=== PATIENT | male | born 1960 | race Hispanic/Latino ===

== ENCOUNTER 2016-12-24 11:20 | Emergency (ER) | payer MEDICARE ==
[2016-12-24] MEDS ORDERED: HYDROmorphone 1 mg/ml ISec IM STA (12:36)
[2016-12-24] MEDS ORDERED: TDAP Vaccine 0.5 mL Syr IM ONE (12:39)
--- NOTE | 2016-12-24 13:01 | ED PDOC ---
Arrival/HPI - General Chief Complaint: Trauma Time Seen by Provider: 12/24/16 11:54 Historian: Patient, Family - History of Present Illness Narrative History of Present Illness (Text): 12/24/16 12:25 Pt is a 56 year old male with a PMH of lyme disease, severe non-specific neuropathy, arthritis, asthma, fatigue syndrome, GERD, DVT, anxiety, PTSD, fibromyalgia and depression who presents to the emergency department accompanied by his family complaining of left side body pain secondary to falling about 2 hrs ago today. As he was going down the stairs, he missed the last step and fell towards the left side of his body causing him to feel coccyx pain that radiates down to his mid calf and up to his left shoulder and neck. He reports whip lash of his neck when he fell, but denies any loss of consciousness, chest pain, fevers, headaches, nausea, shortness of breath, vomiting, or any other complaints. Pt did not hit his head or neck when fell. His left arm landed scraped against a concrete floor due to the fall. Last tetanus shot > 5 yrs ago. PMD: None Time/Duration: Prior to Arrival Symptom Onset: Sudden Symptom Course: Unchanged Activities at Onset: Light Modifying Factors (Text): Left shoulder pain, neck pain, coccyx pain Context: Walking Associated Symptoms (Text): None Past Medical History - Provider Review Nursing Documentation Reviewed: Yes - Infectious Disease Hx of Infectious Diseases: None - Cardiac Other/Comment: R bbb, chicken ranch retinopathy, fatigue syndrom, spinal stenosis - Pulmonary Hx Asthma: Yes - Musculoskeletal/Rheumatological Hx Gout: Yes Other/Comment: neropathy, dvt lower calf - Gastrointestinal Hx Gastroesophageal Reflux: Yes - Genitourinary/Gynecological Other/Comment: damaged coccyx - Psychiatric Hx Anxiety: Yes Hx Depression: Yes Hx Post Traumatic Stress Disorder: Yes Hx Substance Use: No - Surgical History Hx Cholecystectomy: Yes Hx Orthopedic Surgery: Yes Other/Comment: gastric sleeve, green filter Family/Social History - Physician Review Nursing Documentation Reviewed: Yes Family/Social History: Diabetes, Hypertension, Other (emphysema ) Smoking Status: Unknown If Ever Smoked Hx Alcohol Use: Yes Frequency of alcohol use: Socially Hx Substance Use: No Allergies/Home Meds Allergies/Adverse Reactions: Allergies cefuroxime [From Ceftin] Allergy (Verified 12/24/16 11:49) ANAPHYLAXIS levofloxacin [From Levaquin] Allergy (Verified 12/24/16 11:49) RASH Home Medications: Home Meds Medication Instructions Recorded Confirmed Allopurinol [Zyloprim] 300 mg PO DAILY 12/24/16 12/24/16 Alprazolam [Xanax] 2 mg PO TID 12/24/16 12/24/16 Amphetamine Salt Combination 20 mg PO DAILY 12/24/16 12/24/16 [Adderall] Cetirizine HCl [Zyrtec Allergy] 10 mg PO DAILY 12/24/16 12/24/16 Escitalopram [Lexapro] 10 mg PO DAILY 12/24/16 12/24/16 Folic Acid 1 mg PO DAILY 12/24/16 12/24/16 Gabapentin [Neurontin] 300 mg PO TID 12/24/16 12/24/16 Omeprazole 20 mg PO DAILY 12/24/16 12/24/16 QUEtiapine [SEROquel] 150 mg PO DAILY 12/24/16 12/24/16 Warfarin [Coumadin] 7 mg PO DAILY 12/24/16 12/24/16 Review of Systems - Physician Review All systems were reviewed & negative as marked: Yes - Review of Systems Constitutional: absent: Fevers Respiratory: absent: SOB Cardiovascular: absent: Chest Pain Gastrointestinal: absent: Abdominal Pain, Nausea, Vomiting Musculoskeletal: Other (Coccyx pain radiating to mid calf and neck) Skin: Other (cuts on the left arm) Neurological: absent: Headache Physical Exam Vital Signs Reviewed: Yes Vital Signs Temp Pulse Resp BP Pulse Ox 12/24/16 14:03 98.2 F 61 18 145/85 100 12/24/16 11:35 98.6 F 72 16 135/74 97 Temperature: Afebrile Blood Pressure: Normal Pulse: Regular Respiratory Rate: Normal Appearance: Positive for: Well-Appearing, Non-Toxic, Comfortable, Other (Pt is obese) Pain Distress: None Mental Status: Positive for: Alert and Oriented X 3 - Systems Exam Head: Present: Atraumatic, Normocephalic Pupils: Present: PERRL Extroacular Muscles: Present: EOMI Conjunctiva: Present: Normal Mouth: Present: Moist Mucous Membranes Pharnyx: Present: Normal Nose (External): Present: Atraumatic Neck: Present: Normal Range of Motion. No: Paraspinal Tenderness Respiratory/Chest: Present: Clear to Auscultation, Good Air Exchange. No: Respiratory Distress, Accessory Muscle Use Cardiovascular: Present: Regular Rate and Rhythm, Normal S1, S2. No: Murmurs Abdomen: Present: Normal Bowel Sounds. No: Tenderness, Distention, Peritoneal Signs Upper Extremity: Present: Normal ROM, Other (multiple abrasions on the left arm and mild left shoulder tenderness). No: Cyanosis, Edema Lower Extremity: Present: Other (mild left hip tenderness). No: Edema Neurological: Present: Speech Normal, Motor Func Grossly Intact, Normal Sensory Function Skin: Present: Warm, Dry, Normal Color. No: Rashes Psychiatric: Present: Alert, Oriented x 3, Normal Insight, Normal Concentration Medical Decision Making ED Course and Treatment: 12/24/16 12:25 Impression: Mechanical fall from a step Differential Diagnosis included but are not limited to: contusion (more likely ) vs. fracture (less likely, secondary to fall) Plan: -- X-ray Cervical spine -- X- ray left hip -- X-ray of sacrum & coccyx -- X- ray of left shoulder -- Boostrix vaccine and Dilaudid -- Reassess and disposition Progress Notes: 12/24/2016 14:23 Shoulder X-ray: Creator : Kenna Chan MD COMPARISON: No prior. FINDINGS: BONES: Bone alignment and mineralization are normal. There is no acute displaced fracture. JOINTS: There is moderate degenerative osteoarthrosis in the acromioclavicular joint with subarticular cystic changes and irregularity. The glenohumeral joint is normal. SOFT TISSUES: Normal. OTHER FINDINGS: None. IMPRESSION: No acute displaced fracture or dislocation. Moderate degenerative osteoarthrosis in the acromioclavicular joint. 12/24/2016 14:25 Sacrum and Coccyx X-ray: Creator : Kenna Chan MD COMPARISON: None available. FINDINGS: BONES: There is no acute displaced fracture or bone destruction. The sacrococcygeal angulation is normal. SACROILIAC JOINTS: Unremarkable. OTHER FINDINGS: None. IMPRESSION: No acute displaced fracture or dislocation. 12/24/2016 14:35 Hip and Pelvis X-ray: Creator : Kenna Chan MD COMPARISON: None. FINDINGS: AP view of the pelvis, AP and frog lateral view of the left hip were obtained. There is no evidence of fracture, dislocation or bone destruction. Bone mineralization is normal. There is mild degenerative osteoarthrosis in the hip joints, worse on the left. The sacroiliac joints are normal. The visualized soft tissues are normal. IMPRESSION: No acute displaced fracture or dislocation. Please note occult fractures cannot be excluded on plain radiographs. If there is a persistent clinical concern, an MRI of the hip may be performed for further evaluation. Mild degenerative osteoarthrosis in the hip joints, worse on the left. 12/24/16 14:23 Pt feels better. xrays show no acute findings. will d/c home. - RAD Interpretation Radiology Orders: 12/24/16 12:36 CERVICAL SPINE AP & LATERAL [RAD] Stat SACRUM &/or COCCYX (MIN 2VW) [RAD] Stat 12/24/16 12:37 Hip Left [HIP MIN 2V W/ PELVIS LT] [RAD] Stat SHOULDER LEFT [RAD] Stat - Medication Orders Current Medication Orders: Discontinued Medications Hydromorphone HCl (Dilaudid) 1 mg IM STAT STA Stop: 12/24/16 12:37 Last Admin: 12/24/16 12:49 Dose: 1 mg Tetanus/Reduced Diphtheria/Acell Pertussis (Boostrix Vaccine Inj) 0.5 ml IM .ONCE ONE Stop: 12/24/16 12:40 Last Admin: 12/24/16 14:02 Dose: 0.5 ml - Scribe Statement The provider has reviewed the documentation as recorded by the Scribe 12/24/2016 Wanda Fernandez training with [employer] Provider Scribe Attestation: All medical record entries made by the Scribe were at my direction and personally dictated by me. I have reviewed the chart and agree that the record accurately reflects my personal performance of the history, physical exam, medical decision making, and the department course for this patient. I have also personally directed, reviewed, and agree with the discharge instructions and disposition. Disposition/Present on Arrival - Present on Arrival Any Indicators Present on Arrival: No History of DVT/PE: Yes History of Uncontrolled Diabetes: No Urinary Catheter: No History of Decub. Ulcer: No History Surgical Site Infection Following: Orthopedic Procedures - Disposition Have Diagnosis and Disposition been Completed?: Yes Diagnosis: Fall (on) (from) other stairs and steps, initial encounter, Arm abrasion, Contusion of sacrum Disposition: HOME/ ROUTINE Disposition Time: 14:24 Patient Plan: Discharge Condition: IMPROVED Discharge Instructions (ExitCare): Contusion in Adults (ED), Abrasion (ED), Fall Prevention (ED) Print Language: AMHARIC Additional Instructions: Mr. Linda, thank you for letting us take care of you today. Return to the ER if your symptoms worsen. Take your routine/chronic pain medication as needed for pain. Follow up with Dr. James Izquierdo this week for a re-evaluation. Referrals: Fred Izquierdo MD [Primary Care Provider] - Follow up with primary
[2016-12-24 14:04] VITALS: BP 145/85; PULSE 61; RESP 18; TEMP 98.2; O2SAT 100
--- NOTE | 2016-12-24 14:20 | RAD ---
PROCEDURE: Radiographs of the Left Shoulder HISTORY: Fall, w/ left lateral rib pain/back coccyx pain COMPARISON: No prior. FINDINGS: BONES: Bone alignment and mineralization are normal. There is no acute displaced fracture. JOINTS: There is moderate degenerative osteoarthrosis in the acromioclavicular joint with subarticular cystic changes and irregularity. The glenohumeral joint is normal. SOFT TISSUES: Normal. OTHER FINDINGS: None. IMPRESSION: No acute displaced fracture or dislocation. Moderate degenerative osteoarthrosis in the acromioclavicular joint.
--- NOTE | 2016-12-24 14:21 | RAD ---
PROCEDURE: Radiographs of the Sacrum and Coccyx HISTORY: Fell w/ left lateral rib pain/back coccyx pain COMPARISON: None available. TECHNIQUE: Frontal and lateral views of the sacrum and coccyx FINDINGS: BONES: There is no acute displaced fracture or bone destruction. The sacrococcygeal angulation is normal. SACROILIAC JOINTS: Unremarkable. OTHER FINDINGS: None. IMPRESSION: No acute displaced fracture or dislocation.
--- NOTE | 2016-12-24 14:34 | RAD ---
PROCEDURE: Radiographs of the pelvis and left hip joint INDICATION: COMPARISON: None. FINDINGS: AP view of the pelvis, AP and frog lateral view of the left hip were obtained. There is no evidence of fracture, dislocation or bone destruction. Bone mineralization is normal. There is mild degenerative osteoarthrosis in the hip joints, worse on the left. The sacroiliac joints are normal. The visualized soft tissues are normal. IMPRESSION: No acute displaced fracture or dislocation. Please note occult fractures cannot be excluded on plain radiographs. If there is a persistent clinical concern, an MRI of the hip may be performed for further evaluation. Mild degenerative osteoarthrosis in the hip joints, worse on the left.
--- NOTE | 2016-12-24 15:23 | RAD ---
PROCEDURE: Cervical Spine Radiographs. HISTORY: Pain. COMPARISON: None. FINDINGS: BONES: Alignment maintained. No fracture. Dens Intact. DISC SPACES: Normal. SOFT TISSUES: Normal. No prevertebral soft tissue swelling. OTHER FINDINGS: None. IMPRESSION: Normal cervical spine radiographs
== END 2016-12-24 14:53 | disposition home or self-care (01) ==
LOC: ED 11:20
DX: S40.812A Abrasion of left upper arm, initial encounter (principal); S30.0XXA Contusion of lower back and pelvis, initial encounter; W10.9XXA Fall (on) (from) unspecified stairs and steps, initial encounter; Y93.01 Activity, walking, marching and hiking; M79.7 Fibromyalgia; Z23 Encounter for immunization
CPT/HCPCS: 72040; 72220; 73030; 73502; 90471; 90715; 96372; 99285; J1170

== ENCOUNTER 2017-01-18 17:54 | Emergency (ER) | payer MEDICARE ==
[2017-01-18 18:13] VITALS: BMI 41.1
[2017-01-18 18:19] VITALS: TEMP 98.2; O2SAT 98
--- NOTE | 2017-01-18 18:51 | ED PDOC ---
Arrival/HPI - General Chief Complaint: Trauma Time Seen by Provider: 01/18/17 18:23 Historian: Patient - History of Present Illness Narrative History of Present Illness (Text): 01/18/17 18:39 A 56 year old male, whose past medical history includes lyme disease, severe non -specific neuropathy, arthritis, asthma, fatigue syndrome, GERD, DVT, anxiety, PTSD, fibromyalgia, and depression, presents to the emergency department accompanied by his family reporting of trauma to the neck and back after falling backwards while climbing up the stairs. The patient notes that he was casually walking up the stairs and all of a sudden he couldn't feel his left leg and he fell backwards. He tucked his head during the fall to avoid hitting his head, but he stretched his neck and fell on his neck. The patient denies any nausea, vomiting, diarrhea, chest pain, abdominal pain, or any other symptoms at this time. Patient says that he has a history of multiple falls just like that where his loses the left leg sensation and then falls. No focal weakness otherwise. PMD: Dr. Kramer Time/Duration: Prior to Arrival Symptom Onset: Sudden Symptom Course: Unchanged Activities at Onset: Light Context: Home Past Medical History - Provider Review Nursing Documentation Reviewed: Yes - Infectious Disease Hx of Infectious Diseases: None - Cardiac Other/Comment: R bbb, eek retinopathy, fatigue syndrom, spinal stenosis - Pulmonary Hx Asthma: Yes - Neurological Other/Comment: neuropathy - Endocrine/Metabolic Hx Endocrine Disorders: No - Hematological/Oncological Hx Blood Disorders: No Other/Comment: lymedisease - Integumentary Hx Dermatological Disorder: No - Musculoskeletal/Rheumatological Hx Gout: Yes Other/Comment: neropathy, dvt lower calf - Gastrointestinal Hx Gastroesophageal Reflux: Yes - Genitourinary/Gynecological Other/Comment: damaged coccyx - Psychiatric Hx Anxiety: Yes Hx Depression: Yes Hx Post Traumatic Stress Disorder: Yes Hx Substance Use: No - Surgical History Hx Cholecystectomy: Yes Hx Orthopedic Surgery: Yes Other/Comment: gastric sleeve, green filter - Anesthesia Hx Anesthesia: Yes Hx Anesthesia Reactions: No Hx Malignant Hyperthermia: No Family/Social History - Physician Review Nursing Documentation Reviewed: Yes Family/Social History: No Known Family HX, Unknown Family HX Smoking Status: Unknown If Ever Smoked Hx Alcohol Use: Yes Hx Substance Use: No Allergies/Home Meds Allergies/Adverse Reactions: Allergies cefuroxime [From Ceftin] Allergy (Verified 01/18/17 18:13) ANAPHYLAXIS levofloxacin [From Levaquin] Allergy (Verified 01/18/17 18:13) RASH Home Medications: Home Meds Medication Instructions Recorded Confirmed Allopurinol [Zyloprim] 300 mg PO DAILY 12/24/16 01/18/17 Alprazolam [Xanax] 2 mg PO TID 12/24/16 01/18/17 Amphetamine Salt Combination 20 mg PO BID 12/24/16 01/18/17 [Adderall] Cetirizine HCl [Zyrtec Allergy] 10 mg PO DAILY 12/24/16 01/18/17 Escitalopram [Lexapro] 10 mg PO DAILY 12/24/16 01/18/17 Folic Acid 1 mg PO DAILY 12/24/16 01/18/17 Gabapentin [Neurontin] 300 mg PO TID 12/24/16 01/18/17 Omeprazole 20 mg PO DAILY 12/24/16 01/18/17 QUEtiapine [SEROquel] 150 mg PO DAILY 12/24/16 01/18/17 Warfarin [Coumadin] 7 mg PO DAILY 12/24/16 01/18/17 Review of Systems - Physician Review All systems were reviewed & negative as marked: Yes - Review of Systems Respiratory: absent: SOB Cardiovascular: absent: Chest Pain Gastrointestinal: absent: Abdominal Pain, Diarrhea, Nausea, Vomiting Musculoskeletal: Back Pain, Neck Pain Physical Exam Vital Signs Reviewed: Yes Vital Signs Temp Pulse Resp BP Pulse Ox 01/18/17 21:05 87 18 130/76 98 01/18/17 18:17 98.2 F 67 16 129/78 98 Temperature: Afebrile Blood Pressure: Normal Pulse: Regular Respiratory Rate: Normal Appearance: Positive for: Well-Appearing, Non-Toxic, Comfortable Pain Distress: None Mental Status: Positive for: Alert and Oriented X 3 - Systems Exam Head: Present: Atraumatic, Normocephalic Pupils: Present: PERRL Conjunctiva: Present: Normal Mouth: Present: Moist Mucous Membranes Pharnyx: Present: Normal. No: ERYTHEMA, EXUDATE Neck: Present: Normal Range of Motion, MIDLINE TENDERNESS (ttp in the mid and upper c-spine in the midline) Respiratory/Chest: Present: Clear to Auscultation, Good Air Exchange. No: Respiratory Distress, Accessory Muscle Use Cardiovascular: Present: Regular Rate and Rhythm, Normal S1, S2. No: Murmurs Abdomen: Present: Normal Bowel Sounds. No: Tenderness, Distention, Peritoneal Signs Back: Present: Midline Tenderness (ttp in the lower L-spine) Upper Extremity: Present: Normal Inspection. No: Cyanosis, Edema Lower Extremity: Present: Normal Inspection. No: Edema Neurological: Present: GCS=15, CN II-XII Intact, Speech Normal Skin: Present: Warm, Dry, Normal Color. No: Rashes Psychiatric: Present: Alert, Oriented x 3, Normal Insight, Normal Concentration Medical Decision Making ED Course and Treatment: 01/18/17 18:57 Impression: A 56 year old male with neck and back pain. Differential Diagnosis included but are not limited to: fx vs strain Plan: -- Cervical Spine CT -- Head CT -- Lumbar Spine CT -- Percocet -- Reassess and disposition Prior Visits: Notes and results from previous visits were reviewed. Patient was last seen in the emergency department on 12/24/16 for left side body pain and was discharged home same day. Progress Notes: 01/18/17 20:[address] results are noted below. No acute fx are seen. Of note, there is a right renal lesion noted on CT, of which the patient was made aware and informed that he needs to follow up and obtain an outpatient MRI or CT of the right kidney. CT Head Without Intravenous Contrast EXAM DATE/TIME: 01/18/2017 7:02 PM COMPARISON: No relevant prior studies available. IMPRESSION: No evidence of acute intracranial injury or fractures. CT Cervical Spine Without Intravenous Contras EXAM DATE/TIME: 01/18/2017 7:03 PM COMPARISON:None is available. IMPRESSION: No acute cervical spine fractures identified CT Lumbar Spine Without Intravenous Contrast EXAM DATE/TIME: 01/18/2017 7:04 PM COMPARISON: No relevant prior studies available. IMPRESSION: - No acute lumbar spine fractures identified. - Incidental complex right renal lesion, for which further workup is recommended. See above. - RAD Interpretation Radiology Orders: 01/18/17 19:02 Brain [HEAD W/O CONTRAST] [CT] Stat 01/18/17 19:03 CERVICAL SPINE W/O CONTRAST [CT] Stat 01/18/17 19:04 LUMBAR SPINE W/O CONTRAST [CT] Stat - Medication Orders Current Medication Orders: Discontinued Medications Oxycodone/Acetaminophen (Percocet 5/325 Mg Tab) 1 tab PO STAT STA Stop: 01/18/17 19:03 Last Admin: 01/18/17 19:25 Dose: 1 tab - PA / MULTI CRAFT MAINTENANCE TECHNICIAN / Resident Statement MD/DO has reviewed & agrees with the documentation as recorded. - Scribe Statement The provider has reviewed the documentation as recorded by the Scribe Jasmyne Mcdonough Provider Scribe Attestation: All medical record entries made by the Scribe were at my direction and personally dictated by me. I have reviewed the chart and agree that the record accurately reflects my personal performance of the history, physical exam, medical decision making, and the department course for this patient. I have also personally directed, reviewed, and agree with the discharge instructions and disposition. Disposition/Present on Arrival - Present on Arrival Any Indicators Present on Arrival: Yes History of DVT/PE: Yes History of Uncontrolled Diabetes: No Urinary Catheter: No History of Decub. Ulcer: No History Surgical Site Infection Following: Orthopedic Procedures - Disposition Have Diagnosis and Disposition been Completed?: Yes Diagnosis: Neck strain, Low back strain, Lesion of right hoopa kidney Disposition: HOME/ ROUTINE Disposition Time: 21:00 Patient Plan: Discharge Patient Problems: Current Active Problems Problem Status Onset Lesion of right hoopa kidney Acute Low back strain Acute Neck strain Acute Condition: GOOD Additional Instructions: Continue your medications as prescribed. Have Dr. Kramer arrange for an outpatient MRI or CT scan of the right kidney to assess the lesion seen on it on the imaging done here in the emergency department. Return to the emergency department if any new concerning symptoms. Prescriptions: Baclofen [Lioresal] 1 tab PO TID PRN #20 tab PRN Reason: Pain, Moderate (4-7) Referrals: Rigoberto Kramer MD [Family Provider] - Follow up with primary Forms: [employer] (Malagasy)
[2017-01-18] MEDS ORDERED: Oxycodone/Acetaminophen 5/325 mg Tab PO STA (19:02)
--- NOTE | 2017-01-18 20:22 | CT ---
EXAM: CT Cervical Spine Without Intravenous Contrast CLINICAL HISTORY: 56 years old, male; Injury or trauma; Fall; Initial encounter; Concussion /head injury; Additional info: Upper neck pain S/P fall TECHNIQUE: Axial computed tomography images of the cervical spine without intravenous contrast. This CT exam was performed using one or more of the following dose reduction techniques: automated exposure control, adjustment of the mA and/or kV according to patient size, and/or use of iterative reconstruction technique. Coronal and sagittal reformatted images were created and reviewed. EXAM DATE/TIME: 01/18/2017 7:03 PM COMPARISON: None is available. FINDINGS: VERTEBRAE: No acute cervical spine fractures visualized. No evidence of significant vertebral subluxation. Normal alignment of the facet joints. DISCS/SPINAL CANAL/NEURAL FORAMINA: Marked degenerative disc disease at C5-6. Marked facet joint degenerative changes C3-4 on the right. OTHER BONES/JOINTS: Healing/nonacute fracture of the left second rib posteriorly.Bony structures appear demineralized. SOFT TISSUES: No acute abnormality of the visualized soft tissues is seen. LUNG APICES: No pneumothorax seen. IMPRESSION: - No acute cervical spine fractures identified. - See above for remaining findings.
--- NOTE | 2017-01-18 20:25 | CT ---
EXAM: CT Head Without Intravenous Contrast CLINICAL HISTORY: 56 years old, male; Injury or trauma; Fall; Initial encounter; Concussion / head injury; Additional info: Fell, upper neck injury, on coumadin TECHNIQUE: Axial computed tomography images of the head/brain without intravenous contrast. This CT exam was performed using one or more of the following dose reduction techniques: automated exposure control, adjustment of the mA and/or kV according to patient size, and/or use of iterative reconstruction technique. EXAM DATE/TIME: 01/18/2017 7:02 PM COMPARISON: No relevant prior studies available. FINDINGS: BRAIN: Areas of low density in the periventricular white matter bilaterally, most likely representing mild chronic small vessel ischemic changes. Diffuse, age-related cortical atrophy and ventriculomegaly. No significant acute abnormality identified. No acute hemorrhage seen within the brain. No acute extra-axial fluid collections visualized. No evidence of significant mass effect within the brain. VENTRICLES: See above. BONES/JOINTS: No acute fractures or other acute bony abnormality noted. SOFT TISSUES: No acute abnormality of the visualized soft tissues is seen. VASCULATURE: Atherosclerotic calcification. SINUSES: Visualized paranasal sinuses appear clear. MASTOID AIR CELLS: Mastoid air cells appear clear. IMPRESSION: - No evidence of acute intracranial injury or fractures. - See above for remaining findings.
--- NOTE | 2017-01-18 20:33 | CT ---
EXAM: CT Lumbar Spine Without Intravenous Contrast CLINICAL HISTORY: 56 years old, male; Injury or trauma; Fall; Initial encounter; Blunt trauma (contusions or hematomas); Additional info: Hit neck and low back on fall - R/O FX TECHNIQUE: Axial computed tomography images of the lumbar spine without intravenous contrast. This CT exam was performed using one or more of the following dose reduction techniques: automated exposure control, adjustment of the mA and/or kV according to patient size, and/or use of iterative reconstruction technique. Coronal and sagittal reformatted images were created and reviewed. EXAM DATE/TIME: 01/18/2017 7:04 PM COMPARISON: No relevant prior studies available. FINDINGS: VERTEBRAE: Vertebrae appear demineralized. No evidence of acute lumbar spine fracture, acute vertebral compression deformity, or significant vertebral subluxation. DISCS/SPINAL CANAL/NEURAL FORAMINA: Mild to moderate multilevel degenerative disc disease, greatest at L5-S1. Facet joint degenerative changes L5-S1 and L3-4. SOFT TISSUES: No acute abnormality of the visualized soft tissues is seen. VASCULATURE: IVC filter in place. KIDNEYS AND URETERS: Incidental complex right renal lesion, measuring 5.4 cm maximally. This is a density higher than expected for a simple cyst and demonstrates diffuse, thick, irregular peripheral calcification. Neoplasm is not excluded. Recommend renal protocol CT or MRI for further evaluation, not necessarily on an emergent basis. IMPRESSION: - No acute lumbar spine fractures identified. - Incidental complex right renal lesion, for which further workup is recommended. See above. - See above for remaining findings.
[2017-01-18 21:06] VITALS: BP 130/76; PULSE 87; RESP 18
== END 2017-01-18 21:20 | disposition home or self-care (01) ==
LOC: ED 17:54
DX: S39.012A Strain of muscle, fascia and tendon of lower back, initial encounter (principal); S16.1XXA Strain of muscle, fascia and tendon at neck level, initial encounter; W10.9XXA Fall (on) (from) unspecified stairs and steps, initial encounter; Y92.009 Unspecified place in unspecified non-institutional (private) residence as the place of occurrence of the external cause; N28.89 Other specified disorders of kidney and ureter

== ENCOUNTER 2017-05-03 20:10 | Emergency (ER) | payer MEDICARE ==
[2017-05-03 20:31] VITALS: BP 164/95; PULSE 77; RESP 19; TEMP 98.3; O2SAT 100; BMI 37.5
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
== END 2017-05-03 22:22 | disposition home or self-care (01) ==
LOC: ED 20:10
DX: S61.211A Laceration without foreign body of left index finger without damage to nail, initial encounter (principal); S61.213A Laceration without foreign body of left middle finger without damage to nail, initial encounter; W45.8XXA Other foreign body or object entering through skin, initial encounter; Y93.89 Activity, other specified; Y92.89 Other specified places as the place of occurrence of the external cause

== ENCOUNTER 2017-08-18 13:20 | Emergency (ER) | payer MEDICARE, OTHER ==
[2017-08-18 13:20] VITALS: BMI 39.3
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
[2017-08-18 14:42] LABS: BASO # 0.02 K/mm3 (0.0-2.0); BASO % 0.3 % (0.0-3.0); EOS # 0.1 (0.0-0.7); EOS % 1.5 % (1.5-5.0); GRAN # 3.65 (1.4-6.5); GRAN % 55.4 % (50.0-68.0); HEMOGLOBIN 13.8 g/dL (14.0-18.0); LYMPH # 2.1 (1.2-3.4); LYMPH % 32.2 % (22.0-35.0); MEAN CELL VOLUME 96.9 fl (80.0-105.0); MEAN CORPUSCULAR HEMOGLOBIN 32.8 pg (25.0-35.0); MEAN CORPUSCULAR HGB CONC 33.8 g/dl (31.0-37.0); MONO # 0.7 (0.1-0.6); MONO % 10.6 % (1.0-6.0); RBC 4.21 10^6/uL (3.5-6.1); RED CELL DISTRIBUTION WIDTH 14.2 % (11.5-14.5); WHITE BLOOD COUNT 6.6 10^3/ul (4.5-11.0)
[2017-08-18 14:52] LABS: ALB/GLOB RATIO 1.3 (1.1-1.8); ALT/SGPT 29 U/L (7-56); AST/SGOT 35 U/L (17-59); BLOOD UREA NITROGEN 17 mg/dL (7-21); CALCIUM 9.7 mg/dL (8.4-10.5); GFR AFRICAN-AMERICAN > 60; GFR NON-AFRICAN AMERICAN > 60
[2017-08-18 15:00] LABS: D DIMER < 200 ng/mL (0-243)
[2017-08-18 15:02] LABS: TROPONIN I < 0.01 ng/mL
[2017-08-18 15:03] LABS: PROTHROMBIN TIME 22.2 SECONDS (9.4-12.5)
[2017-08-18 15:04] LABS: INR 1.92 (0.93-1.08)
[2017-08-18 15:23] LABS: CK-MB 3.3 ng/mL (0.0-3.6)
--- NOTE | 2017-08-18 16:12 | RAD ---
HISTORY: Syncope COMPARISON: 12/29/2016. FINDINGS: LUNGS: The lungs are well inflated and clear. PLEURA: No significant pleural effusion identified, no pneumothorax apparent. CARDIOVASCULAR: Normal. OSSEOUS STRUCTURES: No significant abnormalities. VISUALIZED UPPER ABDOMEN: Normal. OTHER FINDINGS: None. IMPRESSION: No active pulmonary disease.
--- NOTE | 2017-08-18 17:24 | CT ---
PROCEDURE: CT HEAD WITHOUT CONTRAST. HISTORY: Syncope COMPARISON: Noncontrast head CT performed 01/18/17 TECHNIQUE: Axial computed tomography images were obtained through the head/brain without intravenous contrast. Radiation dose: Total exam DLP = 1143.68 mGy-cm. This CT exam was performed using one or more of the following dose reduction techniques: Automated exposure control, adjustment of the mA and/or kV according to patient size, and/or use of iterative reconstruction technique. FINDINGS: Streak artifact obscures evaluation of the skullbase. HEMORRHAGE: No intracranial hemorrhage. BRAIN: Diffuse atrophy with prominence of the ventricles and sulci noted. No mass effect or edema. Dense intracranial atherosclerosis. Mild scattered white matter hypodensities, which are nonspecific, but often seen with chronic microvascular ischemic disease. Scattered periventricular and subcortical white matter hypodensities, which are nonspecific, but often seen with chronic microvascular ischemic disease. VENTRICLES: No hydrocephalus. CALVARIUM: Unremarkable. PARANASAL SINUSES: Unremarkable as visualized. No significant inflammatory changes. MASTOID AIR CELLS: Unremarkable as visualized. No inflammatory changes. OTHER FINDINGS: None. IMPRESSION: Generalized atrophy. Nonspecific white matter changes. Dense intracranial atherosclerosis.
[2017-08-18 19:13] LABS: URINE BILIRUBIN NEGATIVE (NEGATIVE); URINE BLOOD TRACE-INTACT (NEGATIVE); URINE GLUCOSE (UA) NEGATIVE (NEGATIVE); URINE LEUKOCYTE ESTERASE NEGATIVE Leu/uL (NEGATIVE); URINE NITRATE NEGATIVE (NEGATIVE); URINE PROTEIN NEGATIVE mg/dL (<30 mg/dL); URINE UROBILINOGEN 0.2 E.U./dL (<1 E.U./dL)
[2017-08-18 19:15] LABS: URINE APPEARANCE CLEAR (CLEAR); URINE COLOR YELLOW (YELLOW)
[2017-08-18 19:29] LABS: URINE BACTERIA MOD (NEG); URINE RBC 0 - 2 /hpf (0-2); URINE WBC 0 - 2 /hpf (0-6)
[2017-08-18 19:30] VITALS: TEMP 97.8; O2SAT 100
[2017-08-18 19:31] VITALS: BP 162/78; PULSE 75; RESP 14
[2017-08-18 19:34] LABS: BARBITURATES, UR NEGATIVE (NEGATIVE); BENZODIAZEPINES, UR POSITIVE (NEGATIVE); OPIATES, UR NEGATIVE (NEGATIVE); PHENCYCLIDINE, UR NEGATIVE (NEGATIVE)
--- NOTE | 2017-08-19 21:25 | CARD ---
APPROVED REPORT EKG Measurement Heart [id number] <Conclusion> Sinus bradycardia Right bundle branch block Abnormal ECG
== END 2017-08-18 19:30 | disposition left against medical advice (07) ==
LOC: ED 13:20
DX: F43.10 Post-traumatic stress disorder, unspecified (principal); A69.20 Lyme disease, unspecified; G47.10 Hypersomnia, unspecified; R55 Syncope and collapse
CPT/HCPCS: 70450; 71045; 80053; 81001; 82550; 82553; 83615; 84484; 85025; 85378; 85610; 90791; 93005; 99284; G0480

== ENCOUNTER 2017-11-28 21:27 | Emergency (ER) | payer MEDICARE ==
[2017-11-28 21:27] VITALS: BMI 39.3
[2017-11-28 22:00] VITALS: TEMP 98.5
[2017-11-28 22:48] LABS: VENOUS BLOOD GAS BASE EXCESS 6.5 mmol/L (0.0-2.0); VENOUS BLOOD GAS PO2 38 mm/Hg (30-55); VENOUS BLOOD PH 7.36 (7.32-7.43)
[2017-11-28 22:59] LABS: BASO # 0.02 K/mm3 (0.0-2.0); BASO % 0.3 % (0.0-3.0); EOS # 0.2 (0.0-0.7); EOS % 2.3 % (1.5-5.0); GRAN # 4.81 (1.4-6.5); GRAN % 68.5 % (50.0-68.0); HEMOGLOBIN 12.7 g/dL (14.0-18.0); LYMPH # 1.3 (1.2-3.4); LYMPH % 18.3 % (22.0-35.0); MEAN CORPUSCULAR HEMOGLOBIN 31.8 pg (25.0-35.0); MEAN CORPUSCULAR HGB CONC 33.4 g/dl (31.0-37.0); MEAN PLATELET VOLUME 9.7 fl (7.0-11.0); MONO # 0.7 (0.1-0.6); MONO % 10.6 % (1.0-6.0); RED CELL DISTRIBUTION WIDTH 14.4 % (11.5-14.5)
[2017-11-28 23:08] LABS: INR 1.12 (0.93-1.08); PROTHROMBIN TIME 12.8 SECONDS (9.4-12.5)
[2017-11-28 23:12] LABS: ALB/GLOB RATIO 1.3 (1.1-1.8); ALBUMIN 3.7 g/dL (3.0-4.8); ALT/SGPT 31 U/L (7-56); AST/SGOT 39 U/L (17-59); BLOOD UREA NITROGEN 16 mg/dL (7-21); CALCIUM 8.8 mg/dL (8.4-10.5); GFR AFRICAN-AMERICAN > 60; GFR NON-AFRICAN AMERICAN > 60
[2017-11-28] MEDS ORDERED: Oxycodone/Acetaminophen 5/325 mg Tab PO STA (23:18)
[2017-11-28 23:23] LABS: TROPONIN I 0.02 ng/mL
--- NOTE | 2017-11-28 23:51 | ED PDOC ---
Arrival/HPI - General Chief Complaint: Shortness Of Breath Time Seen by Provider: 11/28/17 22:06 Historian: Patient - History of Present Illness Narrative History of Present Illness (Text): 11/28/17 23:51 57yo male with pmhx of DVT on Coumadin who present with complaint of right sided rib pain. Notes that pain is with deep inspiration, causing him to take shallow breaths. He did not take any analgesic. He denies chest pain, trauma, cough, diaphoresis, LE edema, calf pain, nausea, vomiting, dizziness, any other complaint. Past Medical History - Provider Review Nursing Documentation Reviewed: Yes - Infectious Disease Hx of Infectious Diseases: None - Tetanus Immunization Tetanus Immunization: Up to Date - Cardiac Hx Hypertension: No Hx Pacemaker: No Hx Peripheral Edema: Yes (right lower extremity) - Pulmonary Hx Asthma: Yes Hx Chronic Obstructive Pulmonary Disease (COPD): Yes - Neurological Hx Headaches: Yes Hx Seizures: No - HEENT Hx HEENT Disorder: Yes (eyeglasses) - Renal Hx Renal Disorder: No - Endocrine/Metabolic Hx Endocrine Disorders: Yes - Hematological/Oncological Hx Anemia: Yes - Integumentary Hx Dermatological Disorder: No - Musculoskeletal/Rheumatological Hx Arthritis: Yes - Gastrointestinal Hx Gastroesophageal Reflux: Yes - Genitourinary/Gynecological Hx Sexually Transmitted Diseases: No - Psychiatric Hx Anxiety: Yes Hx Depression: Yes Hx Post Traumatic Stress Disorder: Yes Hx Substance Use: No - Surgical History Hx Cardiac Catheterization: Yes ("clean report") Hx Cholecystectomy: Yes (1982) Other/Comment: gastric sleeve. arthroscopic L knee - Anesthesia Hx Anesthesia Reactions: No - Suicidal Assessment Feels Threatened In Home Enviroment: No Family/Social History - Physician Review Nursing Documentation Reviewed: Yes Family/Social History: Unknown Family HX Smoking Status: Never Smoked Hx Alcohol Use: Yes Hx Substance Use: No Allergies/Home Meds Allergies/Adverse Reactions: Allergies cefuroxime [From Ceftin] Allergy (Severe, Verified 08/18/17 13:56) ANAPHYLAXIS cefuroxime axetil [From Ceftin] Allergy (Severe, Verified 08/18/17 13:56) ANAPHYLAXIS levofloxacin [From Levaquin] Allergy (Severe, Verified 08/18/17 13:56) RASH Home Medications: Home Meds Medication Instructions Recorded Confirmed Omeprazole [Prilosec] 20 mg PO DAILY 07/02/15 11/11/17 Cetirizine HCl [Zyrtec] 10 mg PO DAILY 09/26/15 11/11/17 Folic Acid 1 mg PO DAILY 09/26/15 11/11/17 Escitalopram [Lexapro] 20 mg PO HS 11/01/16 11/11/17 Quetiapine Fumarate [Seroquel] 150 mg PO HS 11/01/16 11/11/17 Warfarin [Coumadin] 8 mg PO HS 11/01/16 11/11/17 Allopurinol [Zyloprim] 300 mg PO DAILY 12/24/16 11/11/17 Alprazolam [Xanax] 2 mg PO TID 12/24/16 11/11/17 Amphetamine Salt Combination 20 mg PO BID 12/24/16 11/11/17 [Adderall] Review of Systems - Physician Review All systems were reviewed & negative as marked: Yes - Review of Systems Constitutional: Normal Eyes: Normal ENT: Normal Respiratory: Normal Cardiovascular: Normal Gastrointestinal: Normal Genitourinary Male: Normal Musculoskeletal: Arthralgias (right rib) Skin: Normal Neurological: Normal Endocrine: Normal Hemo/Lymphatic: Normal Psychiatric: Normal Physical Exam Vital Signs Reviewed: Yes Vital Signs Temp Pulse Resp BP Pulse Ox 11/29/17 00:35 78 18 138/78 96 11/28/17 21:59 16 11/28/17 21:56 98.5 F 70 20 151/80 H 98 Temperature: Afebrile Blood Pressure: Normal Pulse: Regular Respiratory Rate: Normal Appearance: Positive for: Well-Appearing, Non-Toxic, Comfortable Pain Distress: None Mental Status: Positive for: Alert and Oriented X 3 - Systems Exam Head: Present: Atraumatic, Normocephalic Pupils: Present: PERRL Extroacular Muscles: Present: EOMI Conjunctiva: Present: Normal Mouth: Present: Moist Mucous Membranes Neck: Present: Normal Range of Motion Respiratory/Chest: Present: Clear to Auscultation, Good Air Exchange, Tender to Palpation (Right lateral and posterior ribs). No: Respiratory Distress, Accessory Muscle Use, Wheezes, Decreased Breath Sounds, Rales, Retracting, Rhonchi Cardiovascular: Present: Regular Rate and Rhythm, Normal S1, S2. No: Murmurs Abdomen: No: Tenderness, Distention, Peritoneal Signs Back: Present: Normal Inspection Upper Extremity: Present: Normal Inspection. No: Cyanosis, Edema Lower Extremity: Present: Normal Inspection. No: Edema Neurological: Present: GCS=15, CN II-XII Intact, Speech Normal Skin: Present: Warm, Dry, Normal Color. No: Rashes Psychiatric: Present: Alert, Oriented x 3, Normal Insight, Normal Concentration Medical Decision Making ED Course and Treatment: 11/29/17 01:48 PT presented for stated history. His lab was unremarkable. His INR was sub therapeutic and he was advised to take his medication as was directed. He admitted that he did not take it for 3days. His pain was reproducible and likely MS. right ribs/CR - No fx. No PTX EKG LAD; RBBB @63bpm This is comparable to pt's previous EKG Result was DW the pt. His pain was controlled in ED and he was DC home with Tramadol. Referred to his PMD. - Lab Interpretations Lab Results: 11/28/17 22:48 11/28/17 22:48 Lab Results 11/28/17 22:48: Sodium 142, Chloride 102, Potassium 3.7, Carbon Dioxide 31, Anion Gap 13, BUN 16, Creatinine 0.8, Est GFR ( Amer) > 60, Est GFR (Non- Af Amer) > 60, Random Glucose 92, Calcium 8.8, Magnesium 1.9, Total Bilirubin 0.9, AST 39, ALT 31, Alkaline Phosphatase 56, Lactate Dehydrogenase 539, Total Creatine Kinase 338 H, CK-MB (CK-2) 3.0, CK-MB (CK-2) % Cancelled, Troponin I 0.02 D, Total Protein 6.5, Albumin 3.7, Globulin 2.8, Albumin/Globulin Ratio 1.3 11/28/17 22:48: PT 12.8 H, INR 1.12 H, APTT 31.0, D-Dimer, Quantitative 81 11/28/17 22:48: WBC 7.0 D, RBC 4.00, Hgb 12.7 L, Hct 38.0 L, MCV 95.0, MCH 31.8 , MCHC 33.4, RDW 14.4, Plt Count 134, MPV 9.7, Gran % 68.5 H, Lymph % (Auto) 18.3 L, [place] % (Auto) 10.6 H, Eos % (Auto) 2.3, Baso % (Auto) 0.3, Gran # 4.81, Lymph # (Auto) 1.3, [place] # (Auto) 0.7 H, Eos # (Auto) 0.2, Baso # (Auto) 0.02 11/28/17 22:44: pO2 38, VBG pH 7.36, VBG pCO2 60.0, VBG HCO3 33.9 H, VBG Total CO2 35.7 H, VBG O2 Sat (Calc) 74.5 H, VBG Base Excess 6.5 H, VBG Potassium 3.8, Sodium 139.0, Chloride 105.0, Glucose 94, Lactate 0.7, FiO2 21.0, Venous Blood Potassium 3.8 - RAD Interpretation Radiology Orders: 11/28/17 22:08 RIBS RIGHT & PA CHEST [RAD] Stat - Medication Orders Current Medication Orders: Discontinued Medications Oxycodone/Acetaminophen (Percocet 5/325 Mg Tab) 1 tab PO STAT STA Stop: 11/28/17 23:19 Last Admin: 11/28/17 23:29 Dose: 1 tab MAR Pain Assessment Document 11/28/17 23:29 MS (Rec: 11/28/17 23:29 [place] [id number] Pain Reassessment Is this a pain reassessment? No Sleep Is patient sleeping during reassessment? No Presence of Pain Presence of Pain Yes Pain Scale Used Pain Scale Used Numeric Location Pain Location Body Site Chest Description Description Constant Intensity of Pain at present 6 Pain Behavior Moaning Disposition/Present on Arrival - Present on Arrival Any Indicators Present on Arrival: No History of DVT/PE: No History of Uncontrolled Diabetes: No Urinary Catheter: No History of Decub. Ulcer: No History Surgical Site Infection Following: Orthopedic Procedures, None - Disposition Have Diagnosis and Disposition been Completed?: Yes Diagnosis: Rib pain Disposition: HOME/ ROUTINE Disposition Time: 00:05 Patient Plan: Discharge Condition: STABLE Discharge Instructions (ExitCare): Chest Pain (ED) Additional Instructions: Follow up with your doctor Return to ED for any new symptoms Prescriptions: traMADol [Ultram] 50 mg PO TID #12 tab Referrals: [facility] - Follow up with primary Forms: [employer] (Maltese)
[2017-11-29 00:35] VITALS: BP 138/78; PULSE 78; RESP 18; O2SAT 96
--- NOTE | 2017-11-29 11:37 | RAD ---
PROCEDURE: Radiographs of the Chest and Right Ribs. HISTORY: rib pain COMPARISON: Comparison chest 11/07/2017 TECHNIQUE: Frontal radiograph of the chest and multiple oblique radiographs of the right ribs were obtained. FINDINGS: RIGHT RIBS: No definitive radiographic evidence of displaced right-sided rib fracture. Questionable old left lateral 5th rib deformity versus overlapping- confluence of shadow artifact LUNGS: Lung huber clear. PLEURA: No pneumothorax or pleural fluid. CARDIOVASCULAR: Normal sized heart. No pulmonary vascular congestion. OTHER FINDINGS: Mild multilevel degenerative spondylosis of the thoracic spine. In situ IVC filter IMPRESSION: Unremarkable radiographs of the chest and right ribs. No right rib fracture. . Questionable polyp old left lateral 5th rib deformity. If symptoms persist or occult fracture suspected clinically recommend followup CT scan of the chest
--- NOTE | 2017-11-29 14:11 | CARD ---
APPROVED REPORT EKG Measurement Heart [id number] <Conclusion> Unusual P axis, possible ectopic atrial rhythm Left axis deviation Right bundle branch block Inferior infarct, age undetermined Anterior infarct, age undetermined Abnormal ECG
== END 2017-11-29 00:35 | disposition home or self-care (01) ==
LOC: ED 21:27
DX: R07.81 Pleurodynia (principal); Z86.718 Personal history of other venous thrombosis and embolism; Z79.01 Long term (current) use of anticoagulants

== ENCOUNTER 2017-12-31 10:28 | Day surgery (SDC) | payer MEDICARE ==
[2017-12-29 11:49] VITALS: BMI 32.1
[2017-12-31 11:05] LABS: BASO # 0.02 K/mm3 (0.0-2.0); BASO % 0.5 % (0.0-3.0); EOS # 0.2 (0.0-0.7); EOS % 5.1 % (1.5-5.0); GRAN # 2.03 (1.4-6.5); GRAN % 49.7 % (50.0-68.0); HEMOGLOBIN 13.4 g/dL (14.0-18.0); LYMPH # 1.4 (1.2-3.4); LYMPH % 33.5 % (22.0-35.0); MEAN CELL VOLUME 94.7 fl (80.0-105.0); MEAN CORPUSCULAR HEMOGLOBIN 32.3 pg (25.0-35.0); MEAN CORPUSCULAR HGB CONC 34.1 g/dl (31.0-37.0); MEAN PLATELET VOLUME 9.7 fl (7.0-11.0); MONO # 0.5 (0.1-0.6); MONO % 11.2 % (1.0-6.0); RBC 4.15 10^6/uL (3.5-6.1); RED CELL DISTRIBUTION WIDTH 14.2 % (11.5-14.5); WHITE BLOOD COUNT 4.1 10^3/ul (4.5-11.0)
[2017-12-31 11:17] LABS: INR 1.03 (0.93-1.08); PARTIAL THROMBOPLASTIN TIME 32.4 Seconds (25.1-36.5); PROTHROMBIN TIME 11.9 SECONDS (9.4-12.5)
[2017-12-31 11:36] LABS: BLOOD UREA NITROGEN 12 mg/dL (7-21); GFR AFRICAN-AMERICAN > 60; GFR NON-AFRICAN AMERICAN > 60
[2017-12-31 11:37] LABS: CALCIUM 8.9 mg/dL (8.4-10.5)
[2017-12-31] MEDS ORDERED: Lidocaine 1% Inj (20ml) ONE (12:03)
[2017-12-31] MEDS ORDERED: Midazolam 2 MG/2 ML VIAL ONE ×2 (13:38→14:00)
[2017-12-31] MEDS ORDERED: Oxycodone/Acetaminophen 5/325 mg Tab PO PRN (14:10)
[2017-12-31] MEDS ORDERED: Sodium Chloride 0.45% 1,000 ML IV SCH (14:15)
[2017-12-31] MEDS ORDERED: Midazolam 2 MG/2 ML VIAL IVP ONE (14:41)
[2017-12-31] MEDS ORDERED: Oxycodone/Acetaminophen 5/325 mg Tab ONE (15:30)
[2017-12-31] MEDS ORDERED: Oxycodone/Acetaminophen 5/325 mg Tab PO ONE (15:34)
--- NOTE | 2017-12-31 15:36 | RAD ---
Date of service: 12/31/2017 HISTORY: rt lung bx COMPARISON: 11/28/2017. FINDINGS: LUNGS: The lungs are well inflated and clear. PLEURA: No significant pleural effusion identified, no pneumothorax apparent. CARDIOVASCULAR: Normal. OSSEOUS STRUCTURES: Within normal limits for the patient's age. VISUALIZED UPPER ABDOMEN: Normal. OTHER FINDINGS: None. IMPRESSION: No acute findings. No pneumothorax.
[2017-12-31 15:39] VITALS: PULSE 55
[2017-12-31 15:59] VITALS: BP 167/82; RESP 20; TEMP 97.8; O2SAT 98
--- NOTE | 2017-12-31 20:35 | CT ---
PROCEDURE: CT guided right upper lobe lung biopsy. HISTORY: 1.5 cm peripheral right upper lobe nodule. Evaluate for malignancy PHYSICIAN(S): Joe Izquierdo MD. TECHNIQUE: The relative risks and indications of the procedure were explained to the patient and consent obtained. The patient was placed in a slight left decubitus position on the CT scanner and preliminary images through the upper lungs obtained. Conscious sedation and monitoring were provided throughout the procedure by a nurse. There is a peripheral 15 mm noncalcified nodule abutting the pleura with somewhat irregular margins.. A right anterior oblique approach was selected and the area prepped and draped in the usual sterile fashion. 1% Xylocaine was used to anesthetize the skin and soft tissues. A 18 gauge guiding needle was advanced into the 15 mm right upper lobe peripheral nodule. Its position was confirmed with CT. Using coaxial technique, multiple core biopsies were obtained. The postprocedure images show no evidence of large pneumothorax or significant hemorrhage.. IMPRESSION: 1. CT-guided right upper lobe lung biopsy as described above.
== END 2017-12-31 17:47 | disposition home or self-care (01) ==
LOC: SDS 10:28
PROVIDERS: ATTEND Radiology Vascular & Interventional Radiology
DX: J84.10 Pulmonary fibrosis, unspecified (principal); R91.1 Solitary pulmonary nodule; J43.9 Emphysema, unspecified
CPT/HCPCS: 32405; 36415; 71045; 77012; 80048; 85025; 85610; 85730; 88305; J2250; J2405; J3010; J7030

== ENCOUNTER 2018-08-31 10:56 | Outpatient (CLI) | payer MEDICARE | END 2018-08-31 10:57 | disposition home or self-care (01) | LOC: LAB 10:56 ==

== ENCOUNTER 2018-10-29 18:32 | Observation (INO) | payer MEDICARE, OTHER ==
[2018-10-29 18:39] VITALS: BMI 33.5
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
[2018-10-29 19:33] LABS: BASO # 0.03 K/mm3 (0.0-2.0); BASO % 0.6 % (0.0-3.0); EOS # 0.1 (0.0-0.7); HEMOGLOBIN 12.7 g/dL (14.0-18.0); LYMPH # 1.6 (1.2-3.4); LYMPH % 34.2 % (22.0-35.0); MEAN CELL VOLUME 94.1 fl (80.0-105.0); MEAN CORPUSCULAR HEMOGLOBIN 31.4 pg (25.0-35.0); MEAN CORPUSCULAR HGB CONC 33.3 g/dl (31.0-37.0); MEAN PLATELET VOLUME 9.7 fl (7.0-11.0); MONO # 0.6 (0.1-0.6); MONO % 11.9 % (1.0-6.0); RBC 4.05 10^6/uL (3.5-6.1); RED CELL DISTRIBUTION WIDTH 14.4 % (11.5-14.5); WHITE BLOOD COUNT 4.7 10^3/uL (4.5-11.0)
[2018-10-29 19:46] LABS: INR 2.96; PARTIAL THROMBOPLASTIN TIME 47.3 Seconds (26.9-38.3); PROTHROMBIN TIME 32.9 SECONDS (9.4-12.5)
[2018-10-29 19:47] LABS: ALB/GLOB RATIO 1.3 (1.1-1.8); ALT/SGPT 22 U/L (7-56); AST/SGOT 37 U/L (17-59); BLOOD UREA NITROGEN 15 mg/dL (7-21); CALCIUM 8.9 mg/dL (8.4-10.5); GFR NON-AFRICAN AMERICAN > 60
--- NOTE | 2018-10-29 20:27 | US ---
HISTORY: Leg pain and swelling. Evaluate for DVT PHYSICIAN(S): Joe Izquierdo MD. TECHNIQUE: Duplex sonography and color-flow Doppler with graded compression were used to evaluate the deep venous systems of both lower extremities. FINDINGS: There appears to be chronic DVT with incomplete recanalization noted throughout the left femoral vein. The left common femoral vein is normal and compressible. Post phlebitic changes are also noted in the left popliteal vein. There is no sonographic evidence for deep venous thrombosis in the right lower extremity. IMPRESSION: Chronic post phlebitic changes with incomplete recanalization in the left femoral and popliteal veins
[2018-10-29] MEDS ORDERED: Morphine 2 mg/ml ISec IVP STA (23:09)
[2018-10-30 02:12] VITALS: RESP 20
[2018-10-30] MEDS ORDERED: Pantoprazole 40 mg EC Tab PO SCH (06:00)
--- NOTE | 2018-10-30 10:17 | CT ---
Date of service: 10/29/2018 PROCEDURE: CT HEAD WITHOUT CONTRAST. HISTORY: headache COMPARISON: 08/18/2017 TECHNIQUE: Axial computed tomography images were obtained through the head/brain without intravenous contrast. Radiation dose: Total exam DLP = 992.42 mGy-cm. This CT exam was performed using one or more of the following dose reduction techniques: Automated exposure control, adjustment of the mA and/or kV according to patient size, and/or use of iterative reconstruction technique. FINDINGS: HEMORRHAGE: No intracranial hemorrhage. BRAIN: No mass effect or edema. No atrophy or chronic microvascular ischemic changes. VENTRICLES: Unremarkable. No hydrocephalus. CALVARIUM: Unremarkable. PARANASAL SINUSES: Unremarkable as visualized. No significant inflammatory changes. MASTOID AIR CELLS: Unremarkable as visualized. No inflammatory changes. OTHER FINDINGS: The report concurs with the preliminary [facility] report IMPRESSION: No acute intracranial finding
--- NOTE | 2018-10-30 10:21 | CT ---
Date of service: 10/29/2018 PROCEDURE: CT Cervical Spine without contrast HISTORY: neck pain COMPARISON: None available. TECHNIQUE: Axial computed tomography images were obtained of the cervical spine without the use of intravenous contrast. Coronal and sagittal reformatted images were created and reviewed. Radiation dose: Total exam DLP = 418.9 mGy-cm. This CT exam was performed using one or more of the following dose reduction techniques: Automated exposure control, adjustment of the mA and/or kV according to patient size, and/or use of iterative reconstruction technique. FINDINGS: VERTEBRAE: No fracture. Normal alignment. No destructive bony lesion. DISCS/SPINAL CANAL/NEURAL FORAMINA: No significant central canal or neural foraminal stenosis. Severe disc degeneration at C5-6. Facet arthropathy on the right at C3-4 PARASPINAL SOFT TISSUES: Unremarkable. OTHER FINDINGS: The report concurs with the preliminary [facility] report IMPRESSION: No evidence of acute fracture
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
--- NOTE | 2018-10-30 13:52 | CT ---
Date of service: 10/29/2018 PROCEDURE: CT Lumbar Spine without contrast HISTORY: low back pain, leg paresthesias COMPARISON: None available. TECHNIQUE: Axial computed tomography images were obtained of the lumbar spine without the use of intravenous contrast. Coronal and sagittal reformatted images were created and reviewed. Radiation dose: Total exam DLP = 1647.19 mGy-cm. This CT exam was performed using one or more of the following dose reduction techniques: Automated exposure control, adjustment of the mA and/or kV according to patient size, and/or use of iterative reconstruction technique. FINDINGS: VERTEBRAE: The vertebral bodies are maintained in height. Normal alignment is maintained. The transverse processes appear intact. The posterior elements are intact. There is no scoliotic curvature. DISCS/SPINAL CANAL/NEURAL FORAMINA: L1-2: Unremarkable. L2-3: Unremarkable. L3-4: Diffuse disc bulge. No focal herniation. Bilateral degenerative facet arthropathy. Ligamentum flavum hypertrophy. Mild central spinal stenosis. L4-5: Diffuse disc bulge. No focal herniation. Mild bilateral degenerative facet arthropathy. Mild central spinal stenosis. Moderate to severe bilateral neural foraminal stenosis. L5-S1: There is marked loss in height of the intervertebral disc space. There is no disc bulge or herniation. Extensive bilateral degenerative facet arthropathy. There is severe right and moderate left neural foraminal stenosis. There is no central spinal stenosis. PARASPINAL SOFT TISSUES: Probable right upper pole renal cortical cyst with dense peripheral calcification. This is unchanged compared to prior abdominal/pelvic CT examination of 02/07/2017. 3 mm nonobstructing calculus lower pole left kidney. OTHER FINDINGS: Evidence of prior gastric surgery. Inferior vena caval filter. Small hiatal hernia. Evidence of prior cholecystectomy. Heterogeneous attenuation of the liver may reflect heterogeneous fatty infiltration. The liver is suboptimally evaluated on the basis of this examination. IMPRESSION: Disc bulge L3-4 and L4-5. Central spinal stenosis at these levels. Multilevel neural foraminal stenosis as described. Degenerative disc disease L5-S1. No fracture. Additional nonacute findings as above. The preliminary findings for this examination were reported by [facility] Radiology at 5:23 p.m. on 10/29/2018. There is concurrence of this report with the preliminary findings.
[2018-10-30 16:02] VITALS: BP 139/75; PULSE 53; TEMP 97.7; O2SAT 97
--- NOTE | 2018-10-30 21:06 | CON ---
DATE: 10/30/2018 HISTORY OF PRESENT ILLNESS: This is a 58-year-old male with past medical history of Lyme disease, colitis, nonspecific neuropathy, asthma, fatigue syndrome, DVT, anxiety, fibromyalgia and depression, came to the emergency room because of paraesthesia on the right side of the body, which improved. I was called to evaluate the patient. PAST MEDICAL HISTORY: As above. SOCIAL HISTORY: He drinks, does not smoke. ALLERGIES: TO CIPROFLOXACIN, LEVOFLOXACIN, AND LEVAQUIN. HOME MEDICATIONS: Prilosec, Zyrtec, Lexapro, Coumadin, Zyloprim, Xanax, Adderall, gabapentin and Norvasc. REVIEW OF SYSTEM: A 10-point review of systems was negative. PHYSICAL EXAMINATION: GENERAL: The patient is sitting comfortably on the chair. VITAL SIGNS: Blood pressure 135/75. HEENT: Normocephalic and atraumatic. NECK: Supple. NEUROLOGIC: Awake and orientated to self. Cranial nerves II to XII were tested. Pupils reactive. EOM intact. Visual huber full. No facial asymmetry. Tongue in midline. Motor examination; spontaneous movement of the extremities noted. Pupils reactive. Spontaneous movement of all the extremities noted. The patient ambulates with a walker. Cerebellar gait deferred. LABORATORY DATA: CT scan of the head was done which was reported negative. IMPRESSION AND PLAN: Paraesthesia. CT scan of the head was negative. No evidence of strokes. Workup in progress. Continue present management. Incidentally, a calciofibrous cyst or hematoma was seen along the right kidney. CT scan of the head was negative. The patient was sitting comfortably on the chair. RECENT ALLERGY TO . Continue present management and physical therapy. We will follow up. Wagner Maher MD
--- NOTE | 2018-10-30 23:40 | HP ---
DATE OF EXAM: 10/30/2018 HISTORY OF PRESENT ILLNESS: The patient was seen and examined. I do agree with the note of the medical reimbursement specialist. I was involved in the plan of care. The patient said that he had gone to his chiropractor and started having pain started in the left leg. He came in for further evaluation. He is complaining of numbness and tingling in the left leg, this may be from acute neuropathy. He was getting and says that it does help his medications. The patient has fibromyalgia control. He has depression and anxiety and he is seeing Psychiatry as well as getting counseling. The patient has a history of DVT and has been on Coumadin. He also has an IVC filter. We will continue the patient on his Coumadin. He has hypertension. He is going to be on amlodipine for his hypertension. He also has a history of gout. No current gout flare-ups. He is going to be seen by Neurology, if Neurology clears the patient, he will be discharged home. He is on his Lexapro for his anxiety. The patient is on Coumadin at 8 mg, this will be continued. He is on allopurinol for his gout and this will be continued as well. He is on a heart-healthy diet. DISPOSITION: Discharged home. FOLLOWUP: Follow up with Dr. Kramer in 1 to 2 weeks. CONDITION: Stable. ACTIVITIES: Increase as tolerated. Rigoberto Kramer MD
== END 2018-10-30 18:50 | disposition home or self-care (01) ==
LOC: ED 18:32 → ERH 23:43 → 5RNO 10-30 00:57
PROVIDERS: ADMIT Internal Medicine Nephrology; ATTEND Internal Medicine Nephrology
DX: R20.2 Paresthesia of skin (principal); M79.7 Fibromyalgia; F43.10 Post-traumatic stress disorder, unspecified; I10 Essential (primary) hypertension; M10.9 Gout, unspecified; J44.9 Chronic obstructive pulmonary disease, unspecified; F32.9 Major depressive disorder, single episode, unspecified; K21.9 Gastro-esophageal reflux disease without esophagitis; M40.50 Lordosis, unspecified, site unspecified; M48.061 Spinal stenosis, lumbar region without neurogenic claudication; G62.9 Polyneuropathy, unspecified; M51.37 Other intervertebral disc degeneration, lumbosacral region; N28.1 Cyst of kidney, acquired; Z86.718 Personal history of other venous thrombosis and embolism; Z79.01 Long term (current) use of anticoagulants; Z95.828 Presence of other vascular implants and grafts; Z86.19 Personal history of other infectious and parasitic diseases
CPT/HCPCS: 70450; 72125; 72131; 80053; 83735; 85025; 85610; 85730; 93970; 96374; 96375; 99285; G0378; J1885; J2270